=== PATIENT | female | born 1960 | race Caucasian/White ===

== ENCOUNTER 2017-04-23 09:32 | Emergency (ER) | payer BC, OTHER ==
--- NOTE | 2017-04-23 10:03 | EDM.PDOC ---
ED HPI GENERAL MEDICAL PROBLEM - General Chief Complaint: ENT Problem Stated Complaint: BLOOD OUT OF EAR, [id number] Time Seen by Provider: 04/23/17 10:03 Source of Information: Reports: Patient History Limitations: Reports: No Limitations - History of Present Illness INITIAL COMMENTS - FREE TEXT/NARRATIVE: Pt had ear discomfort yesterday. I caused her to feel dizzy to the point she was throwing up. She felt worse pain in left ear, then pus and blood was coming out of it. Left Ear Pain Score (Numeric/FACES): 9 - Related Data Allergies Allergy/AdvReac Type Severity Reaction Status Date / Time hydroxyzine [From Vistaril] Allergy Swelling Verified 04/23/17 10:04 Sulfa (Sulfonamide Allergy Hives Verified 04/23/17 10:03 Antibiotics) Home Meds: Home Meds Apixaban [Eliquis] 5 mg PO DAILY 04/23/17 [History] Benazepril [Lotensin] 20 mg PO DAILY 04/23/17 [History] FLUoxetine [PROzac] 20 mg PO DAILY 04/23/17 [History] Levothyroxine 125 mcg PO DAILY 04/23/17 [History] Simvastatin 40 mg PO DAILY 04/23/17 [History] Past Medical History Oncologic (Cancer) History: Reports: Other (See Below) (breast cancer) Social & Family History - Family History Family Medical History: Noncontributory ED ROS GENERAL - Review of Systems Review Of Systems: See Below Constitutional: Reports: Fever, Chills, Other (has felt significantly dizzy with ear pain) HEENT: Reports: Other (runny nose with clear rhinorrhea. pain in left ear acute yesterday, felt pop and now blood and pus from left ear) Respiratory: Reports: No Symptoms Cardiovascular: Reports: No Symptoms Endocrine: Reports: No Symptoms GI/Abdominal: Reports: Nausea, Vomiting : Reports: No Symptoms Musculoskeletal: Reports: No Symptoms Skin: Reports: No Symptoms Neurological: Reports: No Symptoms Psychiatric: Reports: No Symptoms Hematologic/Lymphatic: Reports: No Symptoms ED EXAM, DIZZINESS - Physical Exam Exam: See Below Exam Limited By: No Limitations General Appearance: Anxious Ears: Other (left tm perforation at approx 7 O'clock position. Tm on left mod erythema/edema, note pus debris white-mcguire and blood from perforation into canal. Right ear tm mod edema/erythema,mild effusion behind ear. No significant distention of right ear drum.) Nose: Other Course - Vital Signs Text/Narrative:: Given ivf and rocephin iv. Given zofran iv. Last Recorded V/S: Last Vital Signs Temp 37.4 C 04/23/17 09:55 Pulse 102 H 04/23/17 09:55 Resp 16 04/23/17 09:55 BP 137/93 H 04/23/17 09:55 Pulse Ox 100 04/23/17 09:55 - Orders/Labs/Meds Orders: Active Orders 24 hr Category Date Time Status Sodium Chloride 0.9% [Normal Saline] 1,000 ml Med 04/23/17 10:10 Active IV .BOLUS Medication Orders Sodium Chloride (Normal Saline) 1,000 mls @ 999 mls/hr IV .BOLUS ONE Stop: 04/23/17 11:10 Last Admin: 04/23/17 10:42 Dose: 999 mls/hr Meds: Medications Generic Name Dose Route Start Last Admin Trade Name Freq PRN Reason Stop Dose Admin Sodium Chloride 1,000 mls @ 999 mls/hr 04/23/17 10:10 04/23/17 10:42 Normal Saline IV 04/23/17 11:10 999 mls/hr .BOLUS ONE Administration Discontinued Medications Generic Name Dose Route Start Last Admin Trade Name Freq PRN Reason Stop Dose Admin Ceftriaxone Sodium 1 gm/ 50 mls @ 100 mls/hr 04/23/17 10:11 04/23/17 10:43 Sodium Chloride IV 04/23/17 10:40 100 mls/hr ONETIME ONE Administration Morphine Sulfate 2 mg 04/23/17 10:11 04/23/17 10:43 Morphine IVPUSH 04/23/17 10:12 2 mg ONETIME ONE Administration Ondansetron HCl 4 mg 04/23/17 10:11 04/23/17 10:43 Zofran IV 04/23/17 10:12 4 mg ONETIME ONE Administration Departure - Departure Time of Disposition: 11:06 Disposition: Home, Self-Care 01 Condition: good Clinical Impression: Ruptured ear drum, Otitis media, Vertigo, Nausea & vomiting - Discharge Information Instructions: Eardrum Perforation, [id number] Forms: ED Department Discharge Additional Instructions: Home to rest. Given first dose of antibiotic in the emergency department. Continue antibiotic prescription tomorrow as written. Use pain medicine and nausea medicine as needed. - My Orders Last 24 Hours: My Active Orders 04/23/17 10:10 Sodium Chloride 0.9% [Normal Saline] 1,000 ml IV .BOLUS - Assessment/Plan Last 24 Hours: My Active Orders 04/23/17 10:10 Sodium Chloride 0.9% [Normal Saline] 1,000 ml IV .BOLUS
[2017-04-23] MEDS ORDERED: Sodium Chloride 0.9% 1,000 ML IV ONE (10:10)
[2017-04-23] MEDS ORDERED: cefTRIAXone 1 GM in Sodium Chloride 0.9% 50 ML IV ONE (10:11)
[2017-04-23] MEDS ORDERED: Ondansetron 4 MG/2 ML SDV IV ONE (10:11)
[2017-04-23] MEDS ORDERED: Morphine 2 MG/ML Syringe IVPUSH ONE (10:11)
[2017-04-23 11:16] VITALS: BP 152/79
== END 2017-04-23 11:28 | disposition home or self-care (01) ==
LOC: DL.ED 09:32
DX: H72.92 Unspecified perforation of tympanic membrane, left ear (principal); H66.92 Otitis media, unspecified, left ear; R42 Dizziness and giddiness; R11.2 Nausea with vomiting, unspecified; Z88.2 Allergy status to sulfonamides; Z88.8 Allergy status to other drugs, medicaments and biological substances; Z79.899 Other long term (current) drug therapy
CPT/HCPCS: 96365; 96375; 99284; J0696; J2270; J2405; J7030; J7050